=== PATIENT | female | born 1970 | race Caucasian/White ===

== ENCOUNTER 2021-09-29 21:29 | Inpatient (IN) | payer OTHER ==
[2021-09-29 21:37] VITALS: BMI 32.0
[2021-09-29] MEDS ORDERED: NALOXONE HCL 0.4 MG/ML VIAL IVPUSH ONE (21:37)
[2021-09-29] MEDS ORDERED: SODIUM CHLORIDE 0.9% 500 ML INFUS.BAG IV ONE (21:37)
[2021-09-29 22:27] LABS: VENOUS BASE EXCESS -13.7 mmol/L (-2-2)
[2021-09-29 22:28] LABS: HEMATOCRIT 27.8 % (32.4-45.2); HEMOGLOBIN 9.1 GM/dL (10.7-15.3); MCH 32.6 pg (25.7-33.7); MCHC 32.7 g/dl (32.0-36.0); MEAN CELL VOLUME 99.7 fl (80-96); MEAN PLT VOLUME 7.5 fl (7.5-11.1); PLATELET COUNT 138 10^3/uL (134-434); RBC 2.79 M/mm3 (3.60-5.2); RDW 12.7 % (11.6-15.6); WHITE BLOOD COUNT 6.6 K/mm3 (4.0-10.0)
[2021-09-29 22:31] LABS: VENOUS PCO2 76.7 mmHg (38-52); VENOUS PH 6.986 (7.310-7.410)
[2021-09-29] MEDS ORDERED: SODIUM BICARBONATE 8.4% 50 MEQ/50 ML VIAL IVPB ONE ×2 (22:31→23:32)
[2021-09-29] MEDS ORDERED: SODIUM BICARBONATE 8.4% - 50 ML ONE ×2 (22:32→22:34)
[2021-09-29 22:35] LABS: INR 0.98 (0.83-1.09); PROTHROMBIN TIME (PATIENT) 11.3 SEC (9.7-13.0)
[2021-09-29 22:38] LABS: ACTIVATED PTT 42.9 SECONDS (25.2-36.5)
[2021-09-29 22:50] LABS: CHLORIDE 104 mmol/L (98-107); SODIUM 140 mmol/L (136-145)
[2021-09-29 22:52] LABS: ANION GAP 16 MMOL/L (8-16); BLOOD UREA NITROGEN 16.8 mg/dL (7-18); CALCIUM 8.9 mg/dL (8.5-10.1); CO2 19 mmol/L (21-32)
[2021-09-29] MEDS ORDERED: dilTIAZem HCL 50 MG/10 ML - 10 ML VIAL IVPUSH ONE (22:52)
[2021-09-29 22:53] LABS: ALBUMIN 2.5 g/dl (3.4-5.0); GLUCOSE,RANDOM 295 mg/dL (74-106)
[2021-09-29 22:55] LABS: CREATININE 1.1 mg/dL (0.55-1.3)
[2021-09-29 22:56] LABS: SGPT/ALT 677 U/L (13-61)
[2021-09-29 22:57] LABS: BILIRUBIN,TOTAL 0.2 mg/dL (0.2-1); TOT PROT 5.4 g/dl (6.4-8.2)
[2021-09-29 22:59] LABS: ALK PHOS 34 U/L (45-117)
[2021-09-29 23:01] LABS: LACTIC ACID 11.1 mmol/L (0.4-2.0)
[2021-09-29] MEDS ORDERED: dilTIAZem HCL 125 MG/25 ML - 25 ML VIAL ONE (23:05)
[2021-09-29 23:13] LABS: ANISOCYTOSIS 0; MACROCYTOSIS 0
[2021-09-29 23:22] LABS: SGOT/AST 715 U/L (15-37)
[2021-09-29] MEDS ORDERED: SODIUM BICARBONATE 8.4% - 150 MEQ in DEXTROSE 5%-WATER - 950 ML IVPB SCH (23:45)
[2021-09-30] MEDS ORDERED: dilTIAZem HCL 50 MG/10 ML - 10 ML VIAL IVPUSH ONE (00:04)
[2021-09-30] MEDS ORDERED: LACTATED RINGERS SOLUTION 1000 ML INFUS.BAG IV ONE (00:06)
[2021-09-30] MEDS ORDERED: FENTANYL NS IVPB 500 MCG/100 ML BAG IVPB SCH (00:30)
[2021-09-30 01:25] LABS: ARTERIAL BLD GAS O2 SATURATION 99.9 % (95-98); ARTERIAL BLOOD GAS BASE EXCESS -3.1 mmol/L (-2-2); ARTERIAL BLOOD GAS PO2 443.4 mmHg (80-100); ARTERIAL BLOOD GAS pH 7.405 (7.350-7.450)
[2021-09-30 01:35] LABS: ALLENS TEST POSITIVE
[2021-09-30 01:36] LABS: VENT MODE A/C; VENT RATE 16
[2021-09-30] MEDS: VASOPRESSIN 40 UNITS/100 ML BAG IV SCH ×2 (02:33→23:23)
[2021-09-30] MEDS ORDERED: NITROGLYCERIN 2% OINTMENT - 1GM PACKET TD ONE (04:58)
[2021-09-30] MEDS: PHENYLEPHRINE NS PREMIX 50,000 MCG/500 ML BAG CVP SCH ×2 (06:21→23:12)
[2021-09-30 07:49] LABS: BASO % 0.1 % (0-2.0); EOS % 0.3 % (0-4.5); HEMATOCRIT 43.9 % (32.4-45.2); HEMOGLOBIN 15.2 GM/dL (10.7-15.3); LYMPH % 13.7 % (8-40); MCH 32.9 pg (25.7-33.7); MCHC 34.6 g/dl (32.0-36.0); MONO % 2.8 % (3.8-10.2); NEUT % 83.1 % (42.8-82.8); PLATELET COUNT 162 10^3/uL (134-434); RBC 4.62 M/mm3 (3.60-5.2); RDW 12.7 % (11.6-15.6); WHITE BLOOD COUNT 8.5 K/mm3 (4.0-10.0)
[2021-09-30] MEDS ORDERED: LACTATED RINGERS SOLUTION 1,000 ML/1,000 ML INFUS.BAG IV SCH (08:15)
[2021-09-30 08:16] LABS: BLOOD UREA NITROGEN 21.2 mg/dL (7-18); CALCIUM 8.8 mg/dL (8.5-10.1)
[2021-09-30 08:17] LABS: MAGNESIUM 2.2 mg/dL (1.8-2.4)
[2021-09-30 08:19] LABS: PHOSPHOROUS 2.3 mg/dL (2.5-4.9); TOT PROT 6.5 g/dl (6.4-8.2)
[2021-09-30 08:21] LABS: BILIRUBIN,TOTAL 0.4 mg/dL (0.2-1); CREATININE 1.3 mg/dL (0.55-1.3)
[2021-09-30 08:35] LABS: ALBUMIN 3.3 g/dl (3.4-5.0)
[2021-09-30 08:44] LABS: LACTIC ACID 3.6 mmol/L (0.4-2.0)
[2021-09-30] MEDS: ENOXAPARIN NA (PORCINE) 40 MG/0.4 ML DISP.SYRIN SQ SCH (09:33)
[2021-09-30] MEDS: MUPIROCIN 2% TOPICAL OINTMENT FOR DECOLONIZATION NS SCH ×2 (09:34→21:48)
[2021-09-30] MEDS ORDERED: NOREPINEPHRINE BITARTRATE 4 MG/4 ML ML IV ONE (10:36)
[2021-09-30] MEDS: NOREPINEPHRINE D5W PREMIX 16,000 MCG/500 ML BAG IVPB SCH (12:15)
[2021-09-30] MEDS: INSULIN SLIDING SCALE (NOVOLOG) 1 VIAL SQ SCH ×4 (12:48→21:29)
[2021-09-30] MEDS: POTASSIUM CHLORIDE 20 MEQ PREMIX IVPB 100 ML IVPB SCH ×2 (13:34→14:43)
[2021-09-30 14:30] LABS: PHENCYCLIDINE,URINE NEGATIVE (NEGATIVE); URINE BENZODIAZEPINES NEGATIVE (NEGATIVE)
[2021-09-30 14:31] LABS: COCAINE, UR NEGATIVE (NEGATIVE); METHADONE, UR NEGATIVE (NEGATIVE); OPIATES, URI POSITIVE (NEGATIVE); PH,URINE 5.5 (5.0-8.0); URINE AMPHETAMINES NEGATIVE (NEGATIVE); URINE APPEARANCE CLOUDY; URINE BARBITURATES NEGATIVE (NEGATIVE); URINE BILIRUBIN 2+ (NEGATIVE); URINE COLOR DK YELLOW; URINE GLUCOSE (UA) NEGATIVE (NEGATIVE); URINE KETONE TRACE (NEGATIVE); URINE PROTEIN 1+ (NEGATIVE)
[2021-09-30 14:32] LABS: EPI CELLS 50.5 /uL (0-25.1); HYALINE CASTS 18.97 /uL (0-3.1); URINE BACTERIA 26.5 /uL (0-1359); URINE LEUK ESTERASE 1+ (NEGATIVE); URINE NITRITE NEGATIVE (NEGATIVE); URINE RBC 25.3 /uL (0-23.9); URINE WBC 63.7 /uL (0-25.8)
[2021-09-30] MEDS ORDERED: CEFTRIAXONE 1 GM in DEXTROSE 5%-WATER - 50 ML IVPB ONE (15:30)
[2021-09-30] MEDS ORDERED: DEXTROSE 5%-WATER - 50 ML IVPB ONE (16:04)
[2021-09-30] MEDS ORDERED: cefTRIAXone SODIUM 1 GM VIAL ONE (16:04)
[2021-09-30] MEDS: CHLORHEXIDINE GLUCONATE 4% CLEANSER FOR DECOLONIZATION TP SCH (21:48)
[2021-10-01] MEDS: INSULIN SLIDING SCALE (NOVOLOG) 1 VIAL SQ SCH ×7 (00:38→22:12)
[2021-10-01] MEDS: VASOPRESSIN 40 UNITS/100 ML BAG IV SCH (02:20)
[2021-10-01] MEDS: PHENYLEPHRINE NS PREMIX 50,000 MCG/500 ML BAG CVP SCH (05:00)
[2021-10-01 07:34] LABS: HEMATOCRIT 39.9 % (32.4-45.2); HEMOGLOBIN 13.4 GM/dL (10.7-15.3); MCH 32.6 pg (25.7-33.7); MCHC 33.6 g/dl (32.0-36.0); MEAN CELL VOLUME 97.1 fl (80-96); MEAN PLT VOLUME 7.9 fl (7.5-11.1); PLATELET COUNT 122 10^3/uL (134-434); RBC 4.11 M/mm3 (3.60-5.2); RDW 13.2 % (11.6-15.6); WHITE BLOOD COUNT 2.7 K/mm3 (4.0-10.0)
[2021-10-01 08:09] LABS: BLOOD UREA NITROGEN 35.1 mg/dL (7-18)
[2021-10-01 08:12] LABS: CREATININE 1.3 mg/dL (0.55-1.3)
[2021-10-01 08:13] LABS: BILIRUBIN,TOTAL 0.4 mg/dL (0.2-1); TOT PROT 4.6 g/dl (6.4-8.2)
[2021-10-01] MEDS: SODIUM CHLORIDE 0.45%/POT 20 MEQ/1,000 ML INFUS.BAG IV SCH ×2 (08:44→18:26)
[2021-10-01] MEDS: ENOXAPARIN NA (PORCINE) 40 MG/0.4 ML DISP.SYRIN SQ SCH (09:06)
[2021-10-01] MEDS: MUPIROCIN 2% TOPICAL OINTMENT FOR DECOLONIZATION NS SCH ×2 (09:06→22:11)
[2021-10-01] MEDS ORDERED: CEFTRIAXONE 1 GM in DEXTROSE 5%-WATER - 50 ML IVPB SCH (10:00)
[2021-10-01 10:54] LABS: ARTERIAL BLD GAS O2 SATURATION 91.2 % (95-98); ARTERIAL BLOOD GAS BASE EXCESS -12.9 mmol/L (-2-2); ARTERIAL BLOOD GAS PO2 80.9 mmHg (80-100)
[2021-10-01 10:55] LABS: ALLENS TEST POSITIVE
[2021-10-01 10:56] LABS: VENT MODE A/C; VENT RATE 14
[2021-10-01 11:38] LABS: ARTERIAL BLD GAS O2 SATURATION 92.7 % (95-98); ARTERIAL BLOOD GAS BASE EXCESS -13.2 mmol/L (-2-2); ARTERIAL BLOOD GAS PO2 83.7 mmHg (80-100)
[2021-10-01 11:39] LABS: ALLENS TEST POSITIVE
[2021-10-01 11:40] LABS: VENT MODE A/C
[2021-10-01 11:41] LABS: VENT RATE 16
[2021-10-01 11:43] LABS: ARTERIAL BLOOD GAS pH 7.129 (7.350-7.450)
[2021-10-01 12:24] LABS: ARTERIAL BLD GAS O2 SATURATION 93.8 % (95-98); ARTERIAL BLOOD GAS BASE EXCESS -13.1 mmol/L (-2-2); ARTERIAL BLOOD GAS PO2 86.1 mmHg (80-100)
[2021-10-01 12:25] LABS: VENT MODE A/C; VENT RATE 18
[2021-10-01 13:27] LABS: ARTERIAL BLD GAS O2 SATURATION 96.1 % (95-98); ARTERIAL BLOOD GAS BASE EXCESS -12.2 mmol/L (-2-2); ARTERIAL BLOOD GAS PO2 99.1 mmHg (80-100); ARTERIAL BLOOD GAS pH 7.193 (7.350-7.450)
[2021-10-01 13:29] LABS: VENT MODE VENT; VENT RATE 18
[2021-10-01 14:35] LABS: ARTERIAL BLD GAS O2 SATURATION 97.7 % (95-98); ARTERIAL BLOOD GAS BASE EXCESS -15.2 mmol/L (-2-2)
[2021-10-01 14:37] LABS: ARTERIAL BLD GAS O2 SATURATION 97.6 % (95-98); ARTERIAL BLOOD GAS PO2 154.9 mmHg (80-100)
[2021-10-01 14:43] LABS: ARTERIAL BLOOD GAS pH 6.993 (7.350-7.450)
[2021-10-01 14:46] LABS: ARTERIAL BLOOD GAS pH 6.972 (7.350-7.450)
[2021-10-01 15:03] LABS: ARTERIAL BLD GAS O2 SATURATION 98.4 % (95-98); ARTERIAL BLOOD GAS BASE EXCESS -14.4 mmol/L (-2-2); ARTERIAL BLOOD GAS PO2 173.1 mmHg (80-100)
[2021-10-01 15:13] LABS: ARTERIAL BLOOD GAS pH 7.037 (7.350-7.450)
[2021-10-01] MEDS: NOREPINEPHRINE D5W PREMIX 16,000 MCG/500 ML BAG IVPB SCH (18:25)
[2021-10-01] MEDS: CHLORHEXIDINE GLUCONATE 4% CLEANSER FOR DECOLONIZATION TP SCH (22:11)
[2021-10-02] MEDS: VASOPRESSIN 40 UNITS/100 ML BAG IV SCH (02:30)
[2021-10-02] MEDS: SODIUM CHLORIDE 0.45%/POT 20 MEQ/1,000 ML INFUS.BAG IV SCH ×2 (03:32→09:35)
[2021-10-02] MEDS: PHENYLEPHRINE NS PREMIX 50,000 MCG/500 ML BAG CVP SCH (05:27)
[2021-10-02] MEDS: INSULIN SLIDING SCALE (NOVOLOG) 1 VIAL SQ SCH ×2 (07:26→11:37)
[2021-10-02 08:55] LABS: HEMATOCRIT 38.7 % (32.4-45.2); HEMOGLOBIN 12.6 GM/dL (10.7-15.3); MCH 31.7 pg (25.7-33.7); MCHC 32.5 g/dl (32.0-36.0); MEAN CELL VOLUME 97.6 fl (80-96); PLATELET COUNT 67 10^3/uL (134-434); RBC 3.97 M/mm3 (3.60-5.2); RDW 13.2 % (11.6-15.6); WHITE BLOOD COUNT 5.8 K/mm3 (4.0-10.0)
[2021-10-02 09:19] LABS: CHLORIDE 115 mmol/L (98-107); SODIUM 144 mmol/L (136-145)
[2021-10-02 09:21] LABS: ALBUMIN 1.7 g/dl (3.4-5.0); ANION GAP 10 MMOL/L (8-16); BLOOD UREA NITROGEN 51.3 mg/dL (7-18); CO2 19 mmol/L (21-32); GLUCOSE,RANDOM 74 mg/dL (74-106)
[2021-10-02 09:24] LABS: CREATININE 2.1 mg/dL (0.55-1.3); SGOT/AST 222 U/L (15-37); SGPT/ALT 293 U/L (13-61)
[2021-10-02 09:26] LABS: BILIRUBIN,TOTAL 0.3 mg/dL (0.2-1); TOT PROT 4.1 g/dl (6.4-8.2)
[2021-10-02 09:27] LABS: ALK PHOS 37 U/L (45-117)
[2021-10-02 09:28] LABS: CALCIUM 6.1 mg/dL (8.5-10.1)
[2021-10-02] MEDS: ENOXAPARIN NA (PORCINE) 40 MG/0.4 ML DISP.SYRIN SQ SCH (09:34)
[2021-10-02] MEDS: MUPIROCIN 2% TOPICAL OINTMENT FOR DECOLONIZATION NS SCH (09:35)
[2021-10-02] MEDS ORDERED: DEXTROSE 50%-WATER 25 GM/50 ML DISP.SYRIN ONE (11:32)
[2021-10-02] MEDS ORDERED: DEXTROSE 50%-WATER - 25 GM/50 ML VIAL IVPUSH ONE (11:32)
[2021-10-02] MEDS ORDERED: CALCIUM GLUC IN NACL, ISO-OSM 1 GM/50 ML BAG IVPB ONE (14:40)
[2021-10-02] MEDS ORDERED: SODIUM CHLORIDE 0.45% 1,000 ML IV SCH (14:45)
[2021-10-02] MEDS ORDERED: SODIUM ZIRCONIUM CYCLOSILICATE (LOKELMA) 5 GM PACKET PO SCH (14:45)
[2021-10-02 15:13] VITALS: TEMP 98.7
[2021-10-02 16:51] VITALS: BP 79/52; PULSE 131
== END 2021-10-02 17:46 | disposition expired | DRG 208 ==
LOC: JER 21:29 → JERBED 21:39 → JICU 23:30
PROVIDERS: ADMIT Internal Medicine Pulmonary Disease; ATTEND Internal Medicine Pulmonary Disease
PROC: 5A1945Z Respiratory Ventilation, 24-96 Consecutive Hours (ICD-10-PCS; principal; 2021-09-29)
PROC: 0BH17EZ Insertion of Endotracheal Airway into Trachea, Via Natural or Artificial Opening (ICD-10-PCS; 2021-09-29)
PROC: 05HM33Z Insertion of Infusion Device into Right Internal Jugular Vein, Percutaneous Approach (ICD-10-PCS; 2021-09-30)
PROC: B543ZZA Ultrasonography of Right Jugular Veins, Guidance (ICD-10-PCS; 2021-09-30)
PROC: 05HY33Z Insertion of Infusion Device into Upper Vein, Percutaneous Approach (ICD-10-PCS; 2021-09-30)
DX: J96.01 Acute respiratory failure with hypoxia (principal); I26.93 Single subsegmental thrombotic pulmonary embolism without acute cor pulmonale; G93.6 Cerebral edema; I24.8 Other forms of acute ischemic heart disease; J98.11 Atelectasis; N17.9 Acute kidney failure, unspecified; E87.2 Acidosis; I46.9 Cardiac arrest, cause unspecified; E87.5 Hyperkalemia; I95.9 Hypotension, unspecified
CPT/HCPCS: 0241U-QW; 36415; 36600; 70450-TC; 71045-TC-FY; 71275-TC; 72125-TC; 74177-TC; 80053; 80307; 81003; 82010; 82550; 82553; 82803; 82962; 83605; 83735; 84100; 84484; 85025; 85027; 85610; 85730; 87040; 87086; 93005; 93010; 93306-TC; 94002; 99285-25; J3480; J3490; Q9967